=== PATIENT | female | born 1960 | race Caucasian/White ===

== ENCOUNTER 2016-12-09 12:21 | Emergency (ER) | payer OTHER ==
[2016-12-09 12:28] VITALS: TEMP 98.3
[2016-12-09] MEDS ORDERED: LIDOCAINE 1% W/EPI MPF 10 ML SOL INFIL ONE (12:28)
[2016-12-09] MEDS ORDERED: LIDOCAINE 1% W/EPI MPF 10 ML SOL ONE (12:29)
[2016-12-09 13:55] VITALS: BP 150/90; PULSE 82; RESP 18; O2SAT 97
== END 2016-12-09 12:57 | disposition home or self-care (01) | DRG 605 ==
LOC: ED 12:21
DX: S01.81XA Laceration without foreign body of other part of head, initial encounter (principal)
CPT/HCPCS: 99283